=== PATIENT | male | born 1960 | race Caucasian/White ===

== ENCOUNTER 2016-12-30 13:44 | Day surgery (SDC) | payer BC ==
[~2016-12-30] VITALS: Ht 190.5 cm; Wt 101.9 kg
[2016-12-30 14:03] VITALS: BP 127/94; PULSE 58; TEMP 98.1
[2016-12-30] MEDS ORDERED: ASPIRIN 81M81 MG/TA2 PO (14:04)
[2016-12-30] MEDS ORDERED: MULTIPLE VITAMI1 CAP PO (14:04)
[2016-12-30] MEDS ORDERED: PRINIVIL40 MG PO (14:04)
[2016-12-30] MEDS ORDERED: FLOVENT 44MCG I13 GM IH (14:04)
[2016-12-30 15:02] VITALS: BP 114/86; PULSE 70; TEMP 98.3
[2016-12-30 15:17] VITALS: BP 107/84; PULSE 68
[2016-12-30 15:32] VITALS: BP 116/85; PULSE 59
== END 2016-12-30 15:55 | disposition home or self-care (01) ==
LOC: SDCO 13:44
DX: Z12.11 Encounter for screening for malignant neoplasm of colon (principal)
CPT/HCPCS: OP; J2250; J3010; J7030